=== PATIENT | male | born 1960 | race Caucasian/White ===

== ENCOUNTER → 2016-10-05 | Outpatient (CLI) | payer OTHER ==
--- NOTE | 2016-10-05 09:56 | XR ---
EXAMINATION TYPE: XR elbow limited LT DATE OF EXAM: 10/05/2016 9:43 AM COMPARISON: NONE HISTORY: Pain FINDINGS: Three views of the elbow demonstrate no pathologic joint effusion. The osseous structures are intact . There is no acute fracture or dislocation. Hypertrophic spurs involving the medial lateral epicon dylar region are noted. Large olecranon spur. IMPRESSION: 1. No acute fracture or dislocation. If symptoms persist follow-up study in 7 to 10 days could be ob tained. 2. Large spurs particularly involving the olecranon. Correlate for olecranon bursitis.
== END | disposition home or self-care (01) ==
LOC: RADXRMAIN 09:33
PROVIDERS: ATTEND Internal Medicine
DX: M77.8 Other enthesopathies, not elsewhere classified (principal)

== ENCOUNTER → 2017-04-11 | Outpatient (CLI) | payer OTHER ==
--- NOTE | 2017-04-11 12:03 | XR ---
EXAMINATION TYPE: XR ankle complete RT DATE OF EXAM: 04/11/2017 COMPARISON: 12/01/2013 HISTORY: Pain FINDINGS: Three views of the ankle demonstrate the ankle mortise to be intact and symmetric. The joint spaces are preserved. The osseous structures are intact. Soft tissue edema laterally. Small spur extending off the lateral margin of distal fibula. Tiny bony density along the inferior margin of the lateral malleolus. Small spur along the medial origin of the distal tibia appears chronic. Spur at the insertion of the Achilles tendon noted and there is a small plantar calcaneal spur. IMPRESSION: 1. Soft tissue edema noted laterally with suspected tiny avulsion fracture involving the lateral mall eolus. 2. Palpable abnormality may correspond to a small spur involving the distal fibula.
== END | disposition home or self-care (01) ==
LOC: RADXRMAIN 11:41
PROVIDERS: ATTEND Podiatrist Foot & Ankle Surgery
DX: M89.8X7 Other specified disorders of bone, ankle and foot (principal); M79.89 Other specified soft tissue disorders; M25.571 Pain in right ankle and joints of right foot

== ENCOUNTER → 2018-08-26 | Outpatient (CLI) | payer OTHER ==
--- NOTE | 2018-08-26 16:32 | CT ---
EXAMINATION TYPE: CT pelvis w con DATE OF EXAM: 08/26/2018 COMPARISON: 08/02/2015 INDICATION: Right sided groin pain x3 weeks. DLP: 1548 mGycm, Automated exposure control for dose reduction was used. CONTRAST: 100ml mL of Isovue 300. Study performed with Oral Contrast TECHNIQUE: Axial images were obtained from above the iliac crests to the pubic rami in the axial plan e at 5 mm thick sections. Reconstructed images are reviewed on the computer in the coronal plane. FINDINGS: r there is a cyst on the posterior lateral right mid kidney measuring 2.1 cm in diameter and 5 Hounsf ield units. No masses or hydronephrosis are evident. A small periumbilical hernia containing a loop o f contrast-filled bowel is present. No hydronephrosis is evident. No obvious renal stones are evident . Vascular calcification is aorta. There is moderate fatty infiltration within the visualized portion of the liver. Spleen appears unremarkable were visualized. Pancreas appears normal. CT PELVIS: Loops of bowel within the pelvis are normal. There may be a prior right hemicolectomy. The descen ding colon and sigmoid colon within the [id number] are normal. Appendix: Not visualized. Urinary bladder: Normal. Genitourinary structures: Prostate is prominent. Bilateral fat-containing inguinal hernias are present. Small shotty lymph nodes are present within th e inguinal regions. Osseous structures: No suspicious lytic or sclerotic lesions. IMPRESSIONS: 1. Fat-containing inguinal hernias. 2. Periumbilical hernia containing a loop of bowel without evidence of obstruction.
== END | disposition home or self-care (01) ==
LOC: RADCTMAIN 14:28
PROVIDERS: ATTEND Internal Medicine
DX: K40.20 Bilateral inguinal hernia, without obstruction or gangrene, not specified as recurrent (principal); K42.9 Umbilical hernia without obstruction or gangrene; Z88.5 Allergy status to narcotic agent
CPT/HCPCS: 72193; Q9967

== ENCOUNTER → 2019-01-03 | Outpatient (CLI) | payer OTHER | LOC: RADMRIMAIN 08:59 | PROVIDERS: ATTEND Internal Medicine | DX: Z53.9 Procedure and treatment not carried out, unspecified reason (principal) ==

== ENCOUNTER → 2020-12-07 | Outpatient (CLI) | payer OTHER ==
--- NOTE | 2020-12-07 14:45 | CONS ---
CONSULTATION DATE OF SERVICE: 12/07/2020 INDICATION: A 60-year-old gentleman who has [facility] for difficulties to initiate sleep and multiple awakenings from sleep, possible obstructive sleep apnea- hypopnea syndrome. HISTORY OF PRESENT ILLNESS/SLEEP-WAKE EVALUATION: Patient's usual sleep schedule from 11 or 12 midnight until 7 or 8 a.m. He does have problems with falling asleep, has TV set in bedroom. Usually sleeps in different positions but cannot sleep on the back. He wakes up from sleep 3 times with nocturia, dry mouth, and episodes of gasping for air and panic attacks. In the morning patient wakes up tired, has episodes of irritability, worry about his sleep and has anxiety, claustrophobia. Canalou Sleepiness Scale is 9. PAST MEDICAL HISTORY: Positive for headaches, acid reflux, depression, anxiety. PHYSICAL EXAMINATION: GENERAL: Patient in no distress. VITAL SIGNS: BP 120/89, HR 65, RR 15, height 6', weight 255.6, temperature 96.5, oxygen saturation at room air 98%. HEENT: PERRLA, EOMI, evaluation of oropharynx showed tongue protrudes midline. Extremely low position of soft palate. Mallampati IV. NECK: Supple, no JVD. Thyroid is not palpable. Wide, 17 1/2 inches in circumference. LUNGS: Clear to percussion and to auscultation. Good air exchange. No wheezing or rhonchi. HEART: S1, S2 regular. No murmurs, gallops, or rubs. ABDOMEN: Soft and nontender. Bowel sounds are present. No organomegaly appreciated. EXTREMITIES: No clubbing or cyanosis. SOUBRETTE: Awake, alert, and oriented X3. Cranial nerves 2 to 7 intact. There is no fasciculation or atrophy. noted. No focal deficits observed. IMPRESSION: 1. Snoring, awakenings from sleep with nocturia, dry mouth, and gasping for air. Borderline Canal[place] Sleepiness Scale with tiredness and sleepiness. Wide neck 17- 1/2 inches in circumference. Obstructive sleep apnea-hypopnea syndrome. Awakenings with nocturia and episodes of panic attacks. 2. Mild obesity BMI 31.9. 3. Headaches. 4. Acid reflux. 5. History of neck arthritis. 6. History of depression. 7. History of anxiety. PLAN: 1. Polysomnography for evaluation of patient's breathing during sleep. 2. CPAP/BiPAP titration if sleep study confirms obstructive sleep apnea-hypopnea syndrome. 3. Preferable position during sleep on the side. 4. No driving if patient feels any sleepiness. 5. I will see patient for follow up visit to explain results of testing and following plan. Thank you very much for referring this patient for consultation. Sincerely, Melecio Foster MD, PhD, FAASM Diplomat of [place] [employer] [place] Geography Instructor of [facility] [place] MMODL / PARISHN: [id number] /
== END ==
CPT/HCPCS: 99211

== ENCOUNTER → 2021-12-27 | Outpatient (CLI) | payer OTHER | END | disposition home or self-care (01) | LOC: RADMRIMAIN 07:01 | PROVIDERS: ATTEND Nurse Practitioner Family | DX: Z53.9 Procedure and treatment not carried out, unspecified reason (principal) ==

== ENCOUNTER 2024-12-08 10:00 | Day surgery (SDC) | payer OTHER ==
[~2024-12-08 10:00] MED LIST: LIDOCAINE 1% (10MG/ML) FOR IV START INTRADERMA PRN; ONDANSETRON 4 MG/2 ML VIAL IVP PRN
[2024-12-08 10:46] VITALS: TEMP 97.7
[2024-12-08] MEDS: LACTATED RINGERS 1,000 ML IV SCH (10:58)
[2024-12-08] MEDS: IV FLUID CONTINUATION 1,000 ML IV ONE (10:58)
[2024-12-08] MEDS ORDERED: PROPOFOL 10 MG/ML 20 ML VIAL IV ONE (11:08)
--- NOTE | 2024-12-08 11:18 | P.GSHP ---
History of Present Illness H&P Date: 12/08/24 Chief Complaint: Colon cancer screening with history of polyps 64-year-old male has personal history of colon polyps. Last colonoscopy 3 to 4 years ago. No bowel complaints. History of previous right colectomy for unresectable polyps. Past Medical History Past Medical History: COPD, GERD/Reflux, Hearing Disorder / Deafness, Osteoarthritis (OA) Additional Past Medical History / Comment(s): BACK PAIN, RINGING IN EARS, gastritis, umbilical hernia. dry skin History of Any Multi-Drug Resistant Organisms: None Reported Past Surgical History: Appendectomy, Bowel Resection, Cholecystectomy Additional Past Surgical History / Comment(s): LEFT FOOT SURG (DECEMBER 2013), bowel resection in 2014. Past Anesthesia/Blood Transfusion Reactions: No Reported Reaction Smoking Status: Former smoker - Past Family History Mother Family Medical History: No Reported History Father Family Medical History: Cancer Additional Family Medical History / Comment(s): BLADDER CA Medications and Allergies Home Medications Medication Instructions Recorded Confirmed Type FLUoxetine HCL [PROzac] 40 mg PO BID 01/13/16 12/01/24 History Multivitamin [Men's Multi-Vitamin] 1 each PO Q48H 01/13/16 12/01/24 History Albuterol Sulfate [Ventolin HFA] 2 inh INHALATION DIRECTED PRN 12/01/24 12/01/24 History Fluticasone/Umeclidin/Vilanter 1 inh INHALATION DAILY 12/01/24 12/01/24 History [Trelegy Ellipta 200-62.5-25] Omeprazole [PriLOSEC] 20 mg PO DAILY PRN 12/01/24 12/01/24 History Vit B Complex (Unk0 1 tab PO DAILY 12/01/24 12/01/24 History Allergies Allergy/AdvReac Type Severity Reaction Status Date / Time codeine Allergy Unknown Itching Verified 12/08/24 10:37 Surgical - Exam Vital Signs Temp Pulse Resp BP Pulse Ox 97.7 F 116 H 18 147/86 98 12/08/24 10:44 12/08/24 10:44 12/08/24 10:44 12/08/24 10:44 12/08/24 10:44 Physical exam: General: Well-developed, well-nourished HEENT: Normocephalic, sclerae nonicteric Abdomen: Nontender, nondistended Extremities: No edema Neuro: Alert and oriented Assessment and Plan (1) Colon polyp Narrative/Plan: Will proceed with colonoscopy at this time. Current Visit: Yes Status: Acute Code(s): K63.5 - POLYP OF COLON SNOMED Code(s): 18110647
--- NOTE | 2024-12-08 11:38 | P.PCN ---
Date of Procedure: 12/08/24 Procedure(s) Performed: PREOPERATIVE DIAGNOSIS: Colon cancer screening with personal history of colon polyps POSTOPERATIVE DIAGNOSIS: Multiple colon polyps, diverticulosis PROCEDURE: Colonoscopy with snare polypectomy ANESTHESIA: MAC SURGEON: Malcom Reaves M.D. SPECIMENS: Polyps ENDOSCOPIC PROCEDURE: The patient was placed on the endoscopy table in the left decubitus position. The Olympus colonoscope was inserted into the anus and passed under direct visualization to the ileocolonic anastomosis. From that point the scope was slowly withdrawn. The transverse colon appeared normal. In the descending colon at 65 cm there was a polyp that was removed in a piecemeal fashion and sent to pathology. In the sigmoid colon at around 50 cm there were 2 small polyps both removed using the snare with cautery technique 1 of which was removed in 2 portions. The remainder of the sigmoid and rectum was normal. The patient had mild scattered diverticulosis. Digital rectal examination was normal. The patient was taken to the recovery room in stable condition per anesthesia guidelines. RECOMMENDATIONS: Await biopsy results. Anticipate repeat colonoscopy 1 to 2 years given the larger polyps seen on today's study.
[2024-12-08 11:42] VITALS: RESP 16
[2024-12-08 11:58] VITALS: BP 138/77; PULSE 87
== END 2024-12-08 12:41 | disposition home or self-care (01) ==
LOC: ORWHC2ENDO 10:00
PROVIDERS: ATTEND Surgery
DX: Z12.11 Encounter for screening for malignant neoplasm of colon (principal); D12.4 Benign neoplasm of descending colon; D12.5 Benign neoplasm of sigmoid colon; K57.30 Diverticulosis of large intestine without perforation or abscess without bleeding; J44.9 Chronic obstructive pulmonary disease, unspecified; K21.9 Gastro-esophageal reflux disease without esophagitis; F41.9 Anxiety disorder, unspecified; F32.A Depression, unspecified; Z79.51 Long term (current) use of inhaled steroids; Z79.899 Other long term (current) drug therapy; Z87.891 Personal history of nicotine dependence; Z86.0100 Personal history of colon polyps, unspecified; Z87.19 Personal history of other diseases of the digestive system; Z90.49 Acquired absence of other specified parts of digestive tract; Z88.5 Allergy status to narcotic agent
CPT/HCPCS: 45385; 88305; J2704

== ENCOUNTER → 2025-01-04 | Outpatient (CLI) | payer OTHER ==
[2025-01-04 16:40] LABS: Basophils # (A) 0.08 X 10*3/uL (0.00-0.10); Basophils % (A) 0.7 %; Eosinophils # (A) 0.27 X 10*3/uL (0.04-0.35); Eosinophils % (A) 2.2 %; HCT 50.3 % (39.6-50.0); HGB 16.3 g/dL (13.0-17.0); Lymphocytes # (A) 4.77 X 10*3/uL (0.90-5.00); Lymphocytes % (A) 38.9 %; MCH 28.8 pg (27.0-32.0); MCHC 32.4 g/dL (32.0-37.0); Mean Platelet Volume 11.5 FL (9.5-12.2); Monocytes # (A) 1.39 X 10*3/uL (0.20-1.00); Monocytes % (A) 11.3 %; NRBC Per 100 WBC 0 X 10*3/uL (0.00-0.01); Neutrophils # (A) 5.72 X 10*3/uL (1.80-7.70); Neutrophils % (A) 46.7 %; Platelet Count 301 X 10*3/uL (140-440); RBC 5.65 X 10*6/uL (4.40-5.60); RDW 13.2 % (11.5-14.5); WBC 12.26 X 10*3/uL (4.50-10.00)
[2025-01-05 11:29] LABS: Alpha 1 Anti-Trypsin 137 mg/dL (90 - 200)
[2025-01-06 13:20] LABS: Alt. alternata IgE Class CLASS 0; Alternaria alternata IgE <0.10 kU/L (<0.10); Asperg. fumagatus IgE <0.10 kU/L (<0.10); Asperg. fumagatus IgE Class CLASS 0; Bermuda Grass IgE <0.10 kU/L (<0.10); Birch(Com.Silvr) IgE <0.10 kU/L (<0.10); Birch(Com.Silvr) IgE Class CLASS 0; Cat Epith & Dander IgE <0.10 kU/L (<0.10); Cat Epith & Dander IgE Class CLASS 0; Clad herbarum IgE <0.10 kU/L (<0.10); Clad herbarum IgE Class CLASS 0; Cockroach IgE <0.10 kU/L (<0.10); Cottonwood IgE <0.10 kU/L (<0.10); Dermato. Pteronyssinus Class CLASS 0; Dermato. Pteronyssinus IgE <0.10 kU/L (<0.10); Dermato. farinae IgE <0.10 kU/L (<0.10); Dermato. farinae IgE Class CLASS 0; Dog Dander IgE <0.10 kU/L (<0.10); Elm IgE <0.10 kU/L (<0.10); IgE (Allergen) 2.8 IU/mL (<114.0); Maple (Box Elder) IgE 0.12 kU/L (<0.10); Maple (Box Elder) IgE Class CLASS 0/1; Mountain Cedar IgE <0.10 kU/L (<0.10); Mountain Cedar IgE Class CLASS 0; Mouse Urine IgE Class CLASS 0; Mouse Urine Proteins,IgE <0.10 kU/L (0.10); Nettle IgE <0.10 kU/L (<0.10); Nettle IgE Class CLASS 0; Oak IgE <0.10 kU/L (<0.10); Penicillium chrysogenum IgE <0.10 kU/L (<0.10); Penicillium chrysogenum IgE Cl CLASS 0; Rough Marshelder IgE <0.10 kU/L (<0.10); Rough Marshelder IgE Class CLASS 0; Timothy Grass IgE <0.10 kU/L (<0.10); Timothy Grass IgE Class CLASS 0; White Ash IgE Class CLASS 0
[2025-01-10 13:38] LABS: Alternaria Alternata IgG <13.6 mcg/mL (<13.6); Aspergillus fumigatus IgG NOT DETECTED; Aureobasidium pullulans IgG <13.6 mcg/mL (<13.6); Cladosporium herbarium IgG 89.1 mcg/mL (<14.7); Phoma ssp. IgG 9.9 mcg/mL (<6.6); Saccaharopoly. rectivirgula NOT DETECTED
== END | disposition home or self-care (01) ==
LOC: LABWHC1 09:35
PROVIDERS: ATTEND Internal Medicine Pulmonary Disease
DX: R06.02 Shortness of breath (principal); J44.9 Chronic obstructive pulmonary disease, unspecified; J30.9 Allergic rhinitis, unspecified; R53.83 Other fatigue
CPT/HCPCS: 36415; 82103; 82104; 82785; 85025; 86001; 86003; 86606; 86609